=== PATIENT | female | born 1970 | race Hispanic/Latino ===

== ENCOUNTER 2017-06-06 14:48 | Inpatient (IN) | payer BC ==
[2017-06-06] MEDS ORDERED: Levalbuterol 1.25 MG/3 ML Inhal Soln UD IH STA (15:05)
[2017-06-06] MEDS ORDERED: Sodium Chloride 0.9% 1,000 ML IV STA (15:05)
[2017-06-06] MEDS ORDERED: guaiFENesin 200 mg/10 ml Syrup UD PO STA (15:06)
[2017-06-06] MEDS ORDERED: Ipratropium 0.02% Inhal Soln (0.5 mg/2.5 ml) UD IH STA (15:06)
--- NOTE | 2017-06-06 15:08 | ED PDOC ---
Arrival/HPI - General Chief Complaint: Syncope Time Seen by Provider: 06/06/17 14:50 Historian: Patient - History of Present Illness Narrative History of Present Illness (Text): 06/06/17 15:00 Nona Robison is a 46 year old female, whose past medical history includes hyperthyroidism, Brain AVM with seizure disorder, vertigo, and asthmatic bronchitis, who presents to the emergency department complaining of a continuous cough for the past ten days as well as sob. Patient reports she was prescribed Prednisone and Levaquin, and finished two courses of each (last doses today) but the symptoms have become worse. She has been feeling more sob and cough. Patient notes she decided to take a hot bath for the steam to help her with her shortness of breath, but her found her passed out. No seizure activity was witnessed. Additionally, patient reports having a headache , fever, and nausea last night. Patient denies vomiting, dysuria, diarrhea, abdominal pain, dizziness, or other complaints. PMD: Dr. Norris Time/Duration: > week (10 days) Symptom Onset: Gradual Symptom Course: Worsening Associated Symptoms (Text): cough, fever, headache, nausea, possible loss of consciousness Past Medical History - Provider Review Nursing Documentation Reviewed: Yes - Past History Past History: No Previous - Infectious Disease Hx of Infectious Diseases: None - Tetanus Immunization Tetanus Immunization: Unknown - Reproductive Menopause: Yes - Past Medical History Past Medical History: No Previous - Cardiac Hx Cardiac Disorders: Yes - Pulmonary Hx Bronchitis: Yes - Neurological Hx Seizures: Yes - HEENT Hx HEENT Disorder: (WEARS RX GLASSES) - Renal Hx Renal Disorder: No - Endocrine/Metabolic Hx Hyperthyroidism: Yes (no medication prescribed) - Hematological/Oncological Hx Blood Disorders: No - Integumentary Hx Dermatological Disorder: No - Musculoskeletal/Rheumatological Hx Musculoskeletal Disorders: No - Gastrointestinal Hx Gastrointestinal Disorders: Yes (UMBILICAL HERNIA REPAIR) - Genitourinary/Gynecological Hx Genitourinary Disorders: No - Psychiatric Hx Anxiety: Yes Hx Depression: No Hx Substance Use: No - Past Surgical History Past Surgical History: No Previous - Surgical History Hx Appendectomy: Yes (2006) - Anesthesia Hx Anesthesia: Yes Hx Anesthesia Reactions: No Hx Malignant Hyperthermia: No - Suicidal Assessment Feels Threatened In Home Enviroment: No Family/Social History - Physician Review Nursing Documentation Reviewed: Yes Family/Social History: Unknown Family HX Smoking Status: Heavy Smoker > 10 Cigarettes Daily Hx Alcohol Use: No Hx Substance Use: No Hx Substance Use Treatment: No Allergies/Home Meds Allergies/Adverse Reactions: Allergies No Known Allergies Allergy (Verified 06/06/17 14:59) Home Medications: Home Meds Medication Instructions Recorded Confirmed rOPINIRole [Requip] 2 mg PO DAILY 11/22/14 06/06/17 Review of Systems - Review of Systems Constitutional: Fevers Respiratory: SOB, Cough Cardiovascular: Syncope Gastrointestinal: Nausea. absent: Abdominal Pain, Diarrhea, Vomiting Genitourinary Female: absent: Dysuria, Frequency Musculoskeletal: absent: Back Pain Neurological: Headache, Other (loss of consciousness ). absent: Dizziness Physical Exam Vital Signs Reviewed: Yes Vital Signs Temp Pulse Resp BP Pulse Ox 06/06/17 16:17 98.2 F 91 H 17 118/68 98 06/06/17 14:50 98.1 F 96 H 19 123/77 97 Temperature: Afebrile Blood Pressure: Normal Pulse: Tachycardic Respiratory Rate: Normal Appearance: Positive for: Well-Appearing, Non-Toxic, Comfortable Pain Distress: None Mental Status: Positive for: Alert and Oriented X 3 - Systems Exam Head: Present: Atraumatic, Normocephalic Pupils: Present: PERRL Extroacular Muscles: Present: EOMI Conjunctiva: Present: Normal Mouth: Present: Moist Mucous Membranes Pharnyx: Present: Normal. No: ERYTHEMA, EXUDATE Respiratory/Chest: Present: Wheezes (diffuse bilateral wheezing), Tachypneic. No: Respiratory Distress, Accessory Muscle Use Cardiovascular: Present: Regular Rate and Rhythm, Normal S1, S2. No: Murmurs Abdomen: Present: Normal Bowel Sounds. No: Tenderness, Distention, Peritoneal Signs Upper Extremity: Present: Normal Inspection, Erythema. No: Cyanosis, Edema, Swelling Lower Extremity: Present: Normal Inspection, Normal ROM. No: Edema, Tenderness , Swelling Neurological: Present: GCS=15, CN II-XII Intact, Speech Normal Skin: Present: Warm, Dry, Normal Color. No: Rashes Psychiatric: Present: Alert, Oriented x 3, Normal Insight, Normal Concentration Medical Decision Making ED Course and Treatment: 06/06/17 Impression: 46 year old female with diffused bilateral wheezing. Coughing for 10 days and already finished two courses of Prednisone and Levaquin. Differential: vasovagal vs seizure vs cardiac syncope; underlying asthma vs pneumonia. Plan: -- EKG -- Chest X-ray -- CT Head -- Labs -- Urinalysis -- Robitussin, Atrovent, Xopenex, Solumedrol, and Sodium Chlroide -- Reassess and disposition Progress Notes: 06/06/17 EKG: Ordered, reviewed, and independently interpreted the EKG. Rate : 90 BPM Rhythm : NSR Interpretation : No ST-segment elevations or depressions, no T-wave inversions, normal intervals. Comparison : No previous EKG for comparison. 06/06/17 16:30 Chest X-ray: Creator : Juan Ruano MD COMPARISON: 01/29/2015 FINDINGS: LUNGS: No active pulmonary disease. PLEURA: No significant pleural effusion identified. No pneumothorax apparent. CARDIOVASCULAR: Normal. OSSEOUS STRUCTURES: No significant abnormalities. VISUALIZED UPPER ABDOMEN: Normal. OTHER FINDINGS: None. IMPRESSION: No active disease. No significant interval change compared to the prior examination(s). Concordant results with the preliminary interpretation rendered by the emergency department physicianMOAHN at the conclusion of the procedure. 06/06/17 17:[address]: Creator : Juan Ruano MD COMPARISON: 11/21/2014 CT brain 01/14/2015 MRI head FINDINGS: HEMORRHAGE: No intracranial hemorrhage. BRAIN: No mass effect or edema. Stable calcifications within the right basal ganglia. Similar type by far if your dystrophic calcifications in the left basal ganglia region. VENTRICLES: Unremarkable. No hydrocephalus. CALVARIUM: Unremarkable. PARANASAL SINUSES: Unremarkable as visualized. No significant inflammatory changes. MASTOID AIR CELLS: Unremarkable as visualized. No inflammatory changes. OTHER FINDINGS: None. IMPRESSION: No acute intracranial abnormalities. No significant findings to account for the clinical presentation. No significant interval change compared to the prior examination(s). 06/06/17 18:01 Patient with noted history continues to have significant wheezing and tachypnea despite iv steroids and nebs; it is concerning that she has failed outpatient therapy with oral steroids and albuterol as well as levaquin - will need further observation for asthmatic bronchitis. Patient also with history of seizure with avm with syncopal episode earlier - will place on tele - discussed with Dr. Brandon Brunson. - Lab Interpretations Lab Results: 06/06/17 15:24 06/06/17 15:24 Lab Results 06/06/17 15:24: Sodium 139, Potassium 3.6, Chloride 105, Carbon Dioxide 26, Anion Gap 12, BUN 13, Creatinine 0.6 L, Est GFR ( Amer) > 60, Est GFR ( Non-Af Amer) > 60, Random Glucose 94, Calcium 9.1, Magnesium 2.3 H, Total Bilirubin 0.6, AST 16, ALT 31, Alkaline Phosphatase 69, Lactate Dehydrogenase 332 L, Total Creatine Kinase 48, Troponin I < 0.01, NT-Pro-B Natriuret Pep 48.9 , Total Protein 6.7, Albumin 4.0, Globulin 2.7, Albumin/Globulin Ratio 1.5, Lipase 28 06/06/17 15:24: PT 10.8, INR 1.00, APTT 23.8 06/06/17 15:24: WBC 12.2 H D, RBC 4.41, Hgb 13.6, Hct 40.7, MCV 92.3, MCH 30.8, MCHC 33.4, RDW 14.4, Plt Count 305, MPV 9.3, Gran % 61.9, Lymph % (Auto) 27.7, [place] % (Auto) 10.1 H, Eos % (Auto) 0.3 L, Baso % (Auto) 0.0, Gran # 7.53 H, Lymph # 3.4, [place] # 1.2 H, Eos # 0.0, Baso # 0.00 06/06/17 15:04: Urine Color Yellow, Urine Appearance Clear, Urine pH 7.0, Ur Specific Perkins 1.010, Urine Protein Negative, Urine Glucose (UA) Negative, Urine Ketones Negative, Urine Blood Small H, Urine Nitrate Negative, Urine Bilirubin Negative, Urine Urobilinogen 0.2, Ur Leukocyte Esterase Negative, Urine RBC 2 - 5, Urine WBC 0 - 2, Ur Epithelial Cells 1 - 3, Urine Bacteria Many 06/06/17 14:53: POC Glucose (mg/dL) 83 I have reviewed the lab results: Yes - RAD Interpretation Radiology Orders: 06/06/17 15:03 CHEST TWO VIEWS (PA/LAT) [RAD] Stat 06/06/17 15:04 Brain [HEAD W/O CONTRAST] [CT] Stat Yard Engineer: Radiologist - EKG Interpretation Interpreted by ED Physician: Yes Type: 12 lead EKG - Medication Orders Current Medication Orders: Albuterol/Ipratropium (Duoneb 3 Mg/0.5 Mg (3 Ml) Ud) 3 ml IH STAT STA Stop: 06/06/17 17:52 Discontinued Medications Guaifenesin (Robitussin) 400 mg PO ONCE STA Stop: 06/06/17 15:07 Last Admin: 06/06/17 15:29 Dose: 400 mg Sodium Chloride (Sodium Chloride 0.9%) 1,000 mls @ 999 mls/hr IV .Q1H1M STA Stop: 06/06/17 16:05 Last Admin: 06/06/17 15:29 Dose: 999 mls/hr eMAR Start Stop Document 06/06/17 15:29 IT (Rec: 06/06/17 15:29 IT [id number] Intravenous Solution Start Date 06/06/17 Start Time 15:29 End Date 06/06/17 End time 16:29 Total Infusion Time 60 Ipratropium Almira (Atrovent) 0.5 mg IH STAT STA Stop: 06/06/17 15:07 Last Admin: 06/06/17 15:39 Dose: 0.5 mg Levalbuterol HCl (Xopenex) 1.25 mg IH STAT STA Stop: 06/06/17 15:06 Last Admin: 06/06/17 15:39 Dose: 1.25 mg Methylprednisolone (Solu-Medrol) 125 mg IVP STAT STA Stop: 06/06/17 15:06 Last Admin: 06/06/17 15:29 Dose: 125 mg IVP Administration Document 06/06/17 15:29 IT (Rec: 06/06/17 15:29 IT [id number]) Charges for Administration # of IVP Administrations 1 - Scribe Statement The provider has reviewed the documentation as recorded by the Scribe Celia Pike Provider Scribe Attestation: All medical record entries made by the Scribe were at my direction and personally dictated by me. I have reviewed the chart and agree that the record accurately reflects my personal performance of the history, physical exam, medical decision making, and the department course for this patient. I have also personally directed, reviewed, and agree with the discharge instructions and disposition. Disposition/Present on Arrival - Present on Arrival Any Indicators Present on Arrival: No History of DVT/PE: No History of Uncontrolled Diabetes: No Urinary Catheter: No History of Decub. Ulcer: No History Surgical Site Infection Following: None - Disposition Have Diagnosis and Disposition been Completed?: Yes Diagnosis: Asthmatic bronchitis, Syncope Disposition: HOSPITALIZED Disposition Time: 17:25 Patient Plan: Observation, Telemetry Condition: FAIR Discharge Instructions (ExitCare): Syncope (ED) Forms: [employer] ([employer]amazight)
[2017-06-06 15:42] LABS: EOS % 0.3 % (1.5-5.0); GRAN # 7.53 (1.4-6.5); GRAN % 61.9 % (50.0-68.0); HEMATOCRIT 40.7 % (36.0-48.0); LYMPH # 3.4 (1.2-3.4); LYMPH % 27.7 % (22.0-35.0); MEAN CELL VOLUME 92.3 fl (80.0-105.0); MEAN CORPUSCULAR HEMOGLOBIN 30.8 pg (25.0-35.0); MEAN CORPUSCULAR HGB CONC 33.4 g/dl (31.0-37.0); MEAN PLATELET VOLUME 9.3 fl (7.0-11.0); MONO # 1.2 (0.1-0.6); MONO % 10.1 % (1.0-6.0); RED CELL DISTRIBUTION WIDTH 14.4 % (11.5-14.5); WHITE BLOOD COUNT 12.2 10^3/ul (4.5-11.0)
[2017-06-06 15:51] LABS: ALB/GLOB RATIO 1.5 (1.1-1.8); ALKALINE PHOSPHATASE 69 U/L (38-126); ALT/SGPT 31 U/L (7-56); AST/SGOT 16 U/L (14-36); BILIRUBIN,TOTAL 0.6 mg/dL (0.2-1.3); BLOOD UREA NITROGEN 13 mg/dL (7-21); CALCIUM 9.1 mg/dL (8.4-10.5); CARBON DIOXIDE 26 mmol/L (21-33); CHLORIDE 105 mmol/L (98-107); GFR AFRICAN-AMERICAN > 60; GLUCOSE,RANDOM 94 mg/dL (70-110); LIPASE 28 U/L (23-300); MAGNESIUM 2.3 mg/dL (1.7-2.2); POTASSIUM 3.6 mmol/L (3.6-5.0); SODIUM 139 mmol/L (132-148); TOTAL PROTEIN 6.7 g/dL (5.8-8.3)
[2017-06-06 16:03] LABS: TROPONIN I < 0.01 ng/mL
[2017-06-06 16:06] LABS: PARTIAL THROMBOPLASTIN TIME 23.8 Seconds (23.7-30.8)
--- NOTE | 2017-06-06 16:24 | RAD ---
HISTORY: cough, sob, syncope COMPARISON: 01/29/2015 TECHNIQUE: Chest PA and lateral FINDINGS: LUNGS: No active pulmonary disease. PLEURA: No significant pleural effusion identified. No pneumothorax apparent. CARDIOVASCULAR: Normal. OSSEOUS STRUCTURES: No significant abnormalities. VISUALIZED UPPER ABDOMEN: Normal. OTHER FINDINGS: None. IMPRESSION: No active disease. No significant interval change compared to the prior examination(s). Concordant results with the preliminary interpretation rendered by the emergency department physician procedure.
[2017-06-06 16:42] LABS: URINE BILIRUBIN NEGATIVE (NEGATIVE); URINE BLOOD SMALL (NEGATIVE); URINE GLUCOSE (UA) NEGATIVE (NEGATIVE); URINE KETONE NEGATIVE (NEGATIVE); URINE LEUKOCYTE ESTERASE NEGATIVE Leu/uL (NEGATIVE); URINE PROTEIN NEGATIVE mg/dL (<30 mg/dL); URINE UROBILINOGEN 0.2 E.U./dL (<1 E.U./dL)
[2017-06-06 16:46] LABS: URINE APPEARANCE CLEAR (CLEAR); URINE COLOR YELLOW (YELLOW)
[2017-06-06 17:08] LABS: URINE BACTERIA MANY (NEG); URINE WBC 0 - 2 /hpf (0-6)
--- NOTE | 2017-06-06 17:40 | CT ---
PROCEDURE: CT HEAD WITHOUT CONTRAST. HISTORY: headache, syncope; h/o avm and seizures COMPARISON: 11/21/2014 CT brain 01/14/2015 MRI head TECHNIQUE: Axial computed tomography images were obtained through the head/brain without intravenous contrast. Radiation dose: Total exam DLP = 859.93 mGy-cm. This CT exam was performed using one or more of the following dose reduction techniques: Automated exposure control, adjustment of the mA and/or kV according to patient size, and/or use of iterative reconstruction technique. FINDINGS: HEMORRHAGE: No intracranial hemorrhage. BRAIN: No mass effect or edema. Stable calcifications within the right basal ganglia. Similar type by far if your dystrophic calcifications in the left basal ganglia region. VENTRICLES: Unremarkable. No hydrocephalus. CALVARIUM: Unremarkable. PARANASAL SINUSES: Unremarkable as visualized. No significant inflammatory changes. MASTOID AIR CELLS: Unremarkable as visualized. No inflammatory changes. OTHER FINDINGS: None. IMPRESSION: No acute intracranial abnormalities. No significant findings to account for the clinical presentation. No significant interval change compared to the prior examination(s).
[2017-06-06] MEDS ORDERED: Albuterol-Ipratrop 3 mg / 0.5 (3 ml) UD IH STA (17:51)
[2017-06-06] MEDS ORDERED: Albuterol-Ipratrop 3 mg / 0.5 (3 ml) UD ONE (18:03)
[2017-06-06] MEDS ORDERED: Albuterol-Ipratrop 3 mg / 0.5 (3 ml) UD IH PRN (18:39)
[2017-06-06] MEDS: Albuterol-Ipratrop 3 mg / 0.5 (3 ml) UD IH SCH ×2 (19:51→23:29)
[2017-06-06 20:51] VITALS: BMI 21.4
--- NOTE | 2017-06-06 23:10 | CP.PCM.PN ---
Subjective - Date & Time of Evaluation Date of Evaluation: 06/06/17 Time of Evaluation: 23:09 - Subjective Subjective: Patient was seen at bedside. She complained of cough. Has no other complaints. Denies sob, chest pain. Medical record was reviewed. This 46 year old woman was admitted with worsening dyspnea and productive cough. Has PMH of mild intermittent asthma, cerebral AVM , hyperthyroidism , anxiety, seizure. Objective - Vital Signs/Intake and Output Vital Signs (last 24 hours): Temp Pulse Resp BP Pulse Ox 98.2 F 104 H 18 152/59 H 98 06/06/17 18:27 06/06/17 22:00 06/06/17 20:17 06/06/17 18:27 06/06/17 18:27 - Medications Medications: Current Medications Albuterol/Ipratropium (Duoneb 3 Mg/0.5 Mg (3 Ml) Ud) 3 ml IH Q2H PRN PRN Reason: Shortness of Breath Albuterol/Ipratropium (Duoneb 3 Mg/0.5 Mg (3 Ml) Ud) 3 ml IH [id number] BEA Last Admin: 06/06/17 19:51 Dose: 3 ml Alprazolam (Xanax) 0.25 mg PO HS BEA PRN Reason: Protocol Stop: 06/13/17 22:01 Last Admin: 06/06/17 21:22 Dose: 0.25 mg Doxycycline Hyclate (Doryx) 100 mg PO Q12 BEA PRN Reason: Protocol Last Admin: 06/06/17 21:22 Dose: 100 mg Methylprednisolone (Solu-Medrol) 60 mg IVP Q12 [facility] Last Admin: 06/06/17 21:26 Dose: 60 mg - Labs Labs: PT 10.8 Seconds (9.9-11.8) 06/06/17 15:24 INR 1.00 (0.93-1.08) 06/06/17 15:24 APTT 23.8 Seconds (23.7-30.8) 06/06/17 15:24 - Constitutional Appears: Well, No Acute Distress - Head Exam Head Exam: ATRAUMATIC, NORMAL INSPECTION, NORMOCEPHALIC - Eye Exam Eye Exam: Normal appearance - ENT Exam ENT Exam: Normal External Ear Exam - Neck Exam Neck Exam: Normal Inspection - Respiratory Exam Respiratory Exam: NORMAL BREATHING PATTERN - Cardiovascular Exam Cardiovascular Exam: absent: JVD - GI/Abdominal Exam GI & Abdominal Exam: absent: Distended - Rectal Exam Rectal Exam: Deferred - Exam Additional comments: Deferred. - Extremities Exam Extremities Exam: Normal Inspection - Back Exam Back Exam: NORMAL INSPECTION - Neurological Exam Neurological Exam: Alert, Oriented x3 - Psychiatric Exam Psychiatric exam: Normal Affect, Normal Mood - Skin Skin Exam: Normal Color Assessment and Plan - Assessment and Plan (Free Text) Assessment: Pneumonia. Anxiety . Seizure. Mild intermittent asthma. Hyperthyroidism. Hx Cerebral AVM. Plan: Robitussin 100 mg PO Q4H prn. Continue present management.
[2017-06-06] MEDS: guaiFENesin 200 mg/10 ml Syrup UD PO PRN (23:23)
[2017-06-07] MEDS: Albuterol-Ipratrop 3 mg / 0.5 (3 ml) UD IH SCH ×6 (04:57→23:35)
[2017-06-07] MEDS: guaiFENesin 200 mg/10 ml Syrup UD PO PRN ×3 (05:40→21:15)
[2017-06-07 06:28] LABS: GRAN # 8.19 (1.4-6.5); GRAN % 79.6 % (50.0-68.0); HEMATOCRIT 36.1 % (36.0-48.0); LYMPH # 1.4 (1.2-3.4); LYMPH % 13.2 % (22.0-35.0); MEAN CELL VOLUME 93.3 fl (80.0-105.0); MEAN CORPUSCULAR HEMOGLOBIN 31.3 pg (25.0-35.0); MEAN CORPUSCULAR HGB CONC 33.5 g/dl (31.0-37.0); MEAN PLATELET VOLUME 9.7 fl (7.0-11.0); MONO # 0.7 (0.1-0.6); MONO % 7.2 % (1.0-6.0); RED CELL DISTRIBUTION WIDTH 14.8 % (11.5-14.5); WHITE BLOOD COUNT 10.3 10^3/ul (4.5-11.0)
[2017-06-07 07:15] LABS: ALB/GLOB RATIO 1.3 (1.1-1.8); ALKALINE PHOSPHATASE 78 U/L (38-126); ALT/SGPT 27 U/L (7-56); AST/SGOT 24 U/L (14-36); BILIRUBIN,TOTAL 0.3 mg/dL (0.2-1.3); BLOOD UREA NITROGEN 13 mg/dL (7-21); CALCIUM 8.4 mg/dL (8.4-10.5); CARBON DIOXIDE 22 mmol/L (21-33); CHLORIDE 109 mmol/L (98-107); GFR AFRICAN-AMERICAN > 60; GLUCOSE,RANDOM 124 mg/dL (70-110); POTASSIUM 3.8 mmol/L (3.6-5.0); SODIUM 142 mmol/L (132-148); TOTAL PROTEIN 5.6 g/dL (5.8-8.3)
--- NOTE | 2017-06-07 07:30 | CON ---
REASON FOR PULMONARY CONSULTATION: Asthma. REFERRING PHYSICIAN: Dr. Brunson. HISTORY OF PRESENT ILLNESS: The patient is a 46-year-old female, with past medical history significant for asthma, recurrent bronchitis, hyperthyroidism, brain AVM with seizure disorder, vertigo, who presents to [facility] with main complaints of increasing shortness of breath at rest, dyspnea on exertion, cough, and sputum production for the past week. There is no history of chest pain, coughing up of blood, or chest pain-made worse with deep respirations. There is no history of temperatures, chills, or infectious exposure. There is no history of night sweats, weight loss, or appetite change prior to the above events. No history of leg or calf pains. There is a questionable history of syncope. The patient states that she was taking a very hot bath and "may have passed out." No history of diaphoresis. No history of recent travel. REVIEW OF SYSTEMS: No history of nausea, vomiting or diarrhea. No acute urinary symptoms. No new musculoskeletal complaints. Rest of the review of systems is negative. ALLERGIES: No known allergies. SOCIAL HISTORY: Positive for tobacco and negative for alcohol. FAMILY HISTORY: No inheritable diseases. HOME MEDICATIONS: ReQuip. PHYSICAL EXAMINATION: GENERAL: The patient is not short of breath at rest. She is not using accessory muscles for breathing. VITAL SIGNS: Temperature 98.6, pulse 82, respirations 18, blood pressure 97/66. Oxygen saturation on room air ranges between 93% to 98%. HEENT: Normocephalic, atraumatic. No JVD. CARDIOVASCULAR: Positive S1 and S2. No S3. LUNGS: Decreased breath sounds at the bases. Scattered bilateral rhonchi and wheezing are appreciated. EXTREMITIES: No clubbing, cyanosis or edema. Calves are nontender to palpation. GASTROINTESTINAL: Abdomen is soft, nontender and nondistended. Bowel sounds are positive. SKIN: No acute rash. NEUROLOGIC: Limited at the present time. PERTINENT LABORATORY DATA: Chest x-ray was done this morning and reviewed. There is no active disease present. CBC: White count 10.3, hemoglobin 12.1, hematocrit 36.1, platelets of 286,000. Complete metabolic profile: Creatinine 0.6, magnesium 2.3, LDH 332. Rest of the metabolic profile is within normal limits. IMPRESSION: 1. Acute bronchitis. 2. Acute bronchospasm. 3. Asthma. 4. Possible syncopal episode at home. PLAN: I did discuss the case with the night nurse at length. I have also discussed the case with the patient at length, and reviewed the chart at length. The patient presents to [facility] with a 1-week history of worsening pulmonary symptoms. In addition, as above, the patient was taking a very hot bath "and may have passed out." She was thus admitted for additional evaluation. I did review the chest x-ray as above. There is no active disease present. On physical exam, there is [id number] bronchospasm noted. I will continue with the current nebulizer treatments and current intravenous steroids for now. I will also add inhaled Pulmicort this morning. The patient has also been placed on oral doxycycline. There are no temperatures noted. The initial mild leukocytosis has now resolved. The patient does feel better this morning, and is clinically improved. I might suggest a neurologic evaluation-given the patient's history of brain AVM and seizure disorder. I will also discuss the above with Dr. Brunson later this morning. Thank you very much for this pulmonary consultation. Juan Jose Chawla MD MTDYen
[2017-06-07] MEDS: Budesonide 0.5 mg/2 ml Inhal Susp UD IH SCH ×2 (08:33→19:32)
--- NOTE | 2017-06-07 10:18 | CARD ---
APPROVED REPORT EKG Measurement Heart [id number] <Conclusion> Normal sinus rhythm Normal ECG
--- NOTE | 2017-06-07 12:53 | HP ---
HISTORY OF PRESENT ILLNESS: The patient is a 46-year-old woman with past medical history of mild intermittent asthma, hyperthyroidism, anxiety disorder and cerebral AVM with remote history of seizures who presented to [facility] [place] for evaluation of a several-day history of worsening dyspnea and cough productive of sputum. She saw her PMD on 2 occasions for the aforementioned symptoms and completed 2 courses of antibiotics (Z-pack followed by Levaquin) and Prednisone 50mg (total of 10 days) with no resolution of her symptoms. Given the ongoing nature of her symptoms she opted for evaluation in the ED. Of note the patient was also reported to experience a questionable syncopal episode however, upon further discussion with the patient, she reports that while she was in the bathtub taking a very hot bath she may have "nodded off" for a couple of seconds. The patient denied headache, tongue biting, bowel or bladder incontinence or postictal confusion. Upon arrival to the ED she was noted to be afebrile and hemodynamically stable. She was furthermore noted to be neurologically intact. Physical examination did disclose significant bronchospasm and wheeze. She received Solu-Medrol 125 mg IV x1 and was started on DuoNebs and supplemental oxygen. Given her persistent wheeze she was admitted to the telemetry balderrama for continued management of acute bronchitis. PAST MEDICAL HISTORY: As per HPI. PAST SURGICAL HISTORY: Bilateral tubal ligation. MEDICATIONS: Requip 2 mg p.o. daily, Xanax 0.5 mg p.o. b.i.d. ALLERGIES: NO KNOWN DRUG ALLERGIES. FAMILY HISTORY: Significant for hypertension. SOCIAL HISTORY: The patient denies any toxic habits. She is and lives at home with her and children. REVIEW OF SYSTEMS: A 14-point review of systems is negative except as per HPI. PHYSICAL EXAMINATION: VITAL SIGNS: Temperature 98.6, pulse 82, blood pressure 97/66, respiratory rate 20 and oxygen saturation 94% on room air. GENERAL: No apparent distress. HEENT: PERRL. EOMI. No scleral icterus. No conjunctival pallor. NECK: No JVD. No bruits. LUNGS: Diffuse wheeze with scattered rhonchi. CARDIOVASCULAR: Regular rate and rhythm. Normal S1 and S2. No murmurs, rubs or gallops. ABDOMEN: Normoactive bowel sounds. Soft, nontender and nondistended. EXTREMITIES: No edema. NEUROLOGIC: Awake, alert and oriented x3. No focal motor deficits. LABORATORY DATA: WBC 10.3 with 79% neutrophils, hemoglobin 12, hematocrit 36 and platelets 286. Chemistry reviewed and unremarkable. IMAGING STUDIES: 1. Chest x-ray demonstrated no active disease. 2. CT of the head without contrast demonstrated no acute pathology. ASSESSMENT: The patient is a 46-year-old woman with mild intermittent asthma and anxiety disorder who presented for evaluation of a 1 week history of worsening dyspnea and cough productive of sputum who was admitted to the telemetry balderrama for management of asthma exacerbation and acute bronchitis. PLAN: 1. Mild intermittent asthma with acute exacerbation. Input from Dr. Chawla noted and appreciated. Continue with supplemental oxygen and bronchodilators as needed. Continue with Solu-Medrol 60 mg IV q. 12 hours to taper. Continue Doxycycline 100 mg p.o. q. 12 hours. 2. Anxiety disorder. Continue Xanax 0.5 mg p.o. b.i.d. 3. History of cerebral AVM. The patient remains neurologically intact and with no focal motor deficits. CT head reviewed and is negative. At present we will defer neurological evaluation for likely vasovagal syncope (albeit the history is not convincing for syncope) 4. Hyperthyroidism. 5. Prophylaxis: GI prophylaxis is not indicated as the patient is eating. DVT prophylaxis is not indicated as the patient is ambulatory. CODE STATUS: Full code. Brandon Brunson MD MTDD
[2017-06-08] MEDS: guaiFENesin 200 mg/10 ml Syrup UD PO PRN ×4 (02:23→21:05)
[2017-06-08] MEDS: Albuterol-Ipratrop 3 mg / 0.5 (3 ml) UD IH SCH ×5 (04:25→19:50)
[2017-06-08 06:43] LABS: BASO # 0.01 K/mm3 (0.0-2.0); BASO % 0.1 % (0.0-3.0); GRAN # 11.1 (1.4-6.5); GRAN % 77.2 % (50.0-68.0); HEMATOCRIT 35.5 % (36.0-48.0); LYMPH # 2.3 (1.2-3.4); LYMPH % 16.2 % (22.0-35.0); MEAN CELL VOLUME 93.4 fl (80.0-105.0); MEAN CORPUSCULAR HEMOGLOBIN 32.6 pg (25.0-35.0); MEAN CORPUSCULAR HGB CONC 34.9 g/dl (31.0-37.0); MEAN PLATELET VOLUME 9.3 fl (7.0-11.0); MONO # 0.9 (0.1-0.6); MONO % 6.5 % (1.0-6.0); WHITE BLOOD COUNT 14.4 10^3/ul (4.5-11.0)
[2017-06-08 06:54] LABS: ALB/GLOB RATIO 1.3 (1.1-1.8); ALKALINE PHOSPHATASE 73 U/L (38-126); ALT/SGPT 25 U/L (7-56); AST/SGOT 16 U/L (14-36); BILIRUBIN,TOTAL 0.3 mg/dL (0.2-1.3); BLOOD UREA NITROGEN 8 mg/dL (7-21); CALCIUM 8.4 mg/dL (8.4-10.5); CARBON DIOXIDE 23 mmol/L (21-33); CHLORIDE 111 mmol/L (98-107); GFR AFRICAN-AMERICAN > 60; GLUCOSE,RANDOM 112 mg/dL (70-110); POTASSIUM 3.5 mmol/L (3.6-5.0); SODIUM 144 mmol/L (132-148); TOTAL PROTEIN 5.7 g/dL (5.8-8.3)
[2017-06-08] MEDS ORDERED: Potassium Chloride 20 mEq ER Tab PO ONE (08:07)
--- NOTE | 2017-06-08 08:11 | PN ---
SUBJECTIVE: The patient appears comfortable at rest. She is not short of breath. PHYSICAL EXAMINATION VITAL SIGNS: Last temperature recorded is 99.1, pulse this morning on the monitor is 85, respiratory rate 18, blood pressure 109/59. Oxygen saturation on room air is 95%. HEENT: Normocephalic, atraumatic. NECK: No JVD. CARDIOVASCULAR: Positive S1, S2. No S3. LUNGS: Improved breath sounds at the bases. Less rhonchi. Less wheezing. EXTREMITIES: No clubbing, cyanosis or edema. Calves are nontender to palpation. GASTROINTESTINAL: Abdomen is soft, nontender, nondistended. Bowel sounds are positive. SKIN: No acute rash. NEUROLOGIC: Limited at the present time. IMPRESSION: 1. Acute bronchitis. 2. Acute bronchospasm. 3. Asthma. 4. Possible syncopal episode at home. PLAN: The patient appears comfortable this morning. She is not short of breath at rest. Her cough is much less. The patient states to feeling much better overall. On physical exam, there is significantly less bronchospasm noted. In addition, there is no significant alveolar-arterial gradient. I will continue with the current nebulizer treatments and decrease the intravenous steroids this morning. The patient remains on antibiotic therapy. There are no temperatures noted. There is no leukocytosis. Clinical status of the patient is significantly improved. The patient is advised to increase her activity as tolerated. Hopefully, we could get the patient home in the next 1 to 2 days. I will discuss the above with Dr. Brunson. Juan Jose Chawla MD MTDD
--- NOTE | 2017-06-08 09:05 | PN ---
SUBJECTIVE: The patient was seen and examined at bedside in the telemetry balderrama. No acute events overnight. She remains afebrile and hemodynamically stable. This morning she endorses improvement in her respiratory status and states that she feels her breathing is less labored, however, she does not feel back to her baseline. Otherwise, she offers no complaints. PHYSICAL EXAMINATION: VITAL SIGNS: Temperature 98.4, pulse 92, blood pressure 122/59, respiratory rate 20, and oxygen saturation 95% on room air. GENERAL: No apparent distress. HEENT: PERRL. EOMI. No scleral icterus. No conjunctival pallor. NECK: No JVD. No bruits. LUNGS: Faint wheeze with a few scattered rhonchi. CARDIOVASCULAR: Regular rate and rhythm. Normal S1 and S2. No murmurs, rubs, or gallops. ABDOMEN: Normoactive bowel sounds. Soft, nontender. Nondistended. EXTREMITIES: No edema. NEUROLOGIC: Awake, alert and oriented x3. No focal motor deficits. LABORATORY DATA: WBC is 14.4 with 77% neutrophils, hemoglobin 12, hematocrit 35, and platelets 251. Sodium 144, potassium 3.5, chloride 111, bicarbonate 23, BUN 8, creatinine 0.6, glucose 112. ASSESSMENT: The patient is a 46-year-old woman with mild intermittent asthma and anxiety disorder who presented for evaluation of a one week history of worsening dyspnea and cough productive of sputum who was admitted to the telemetry balderrama for management of asthma exacerbation and acute bronchitis. PLAN: 1. Mild, intermittent asthma with acute exacerbation. Input from Dr. Chawla noted and appreciated. Continue with supplemental oxygen and bronchodilators as needed. Steroids have been tapered to Solu-Medrol 40 mg IV q. 12 hours. Continue doxycycline 100 mg p.o. q. 12 hours. 2. Anxiety disorder. Continue with Xanax 0.5 mg p.o. q. 6 hours p.r.n. 3. History of cerebral AVM. The patient remains neurologically intact and with no focal motor deficits. Furthermore, she denies any neurologic complaints. 4. Hyperthyroidism. 5. Hypokalemia. We will replete. 6. Prophylaxis. GI prophylaxis not indicated, as the patient is eating. DVT prophylaxis not indicated, as the patient is ambulatory. CODE STATUS: FULL CODE. Brandon Brunson MD MTDYen
[2017-06-08] MEDS: MethylPREDNISolone 40 mg Vial IVP SCH ×2 (09:19→21:05)
[2017-06-08] MEDS: Budesonide 0.5 mg/2 ml Inhal Susp UD IH SCH (19:50)
[2017-06-09] MEDS: Albuterol-Ipratrop 3 mg / 0.5 (3 ml) UD IH SCH ×3 (00:20→07:19)
[2017-06-09 06:15] LABS: BASO # 0.01 K/mm3 (0.0-2.0); BASO % 0.1 % (0.0-3.0); GRAN # 10.53 (1.4-6.5); GRAN % 79.4 % (50.0-68.0); HEMATOCRIT 38.7 % (36.0-48.0); LYMPH # 1.9 (1.2-3.4); LYMPH % 14.5 % (22.0-35.0); MEAN CELL VOLUME 94.2 fl (80.0-105.0); MEAN CORPUSCULAR HEMOGLOBIN 30.7 pg (25.0-35.0); MEAN CORPUSCULAR HGB CONC 32.6 g/dl (31.0-37.0); MEAN PLATELET VOLUME 9.6 fl (7.0-11.0); MONO # 0.8 (0.1-0.6); WHITE BLOOD COUNT 13.3 10^3/ul (4.5-11.0)
[2017-06-09 06:40] LABS: ALB/GLOB RATIO 1.3 (1.1-1.8); ALKALINE PHOSPHATASE 79 U/L (38-126); ALT/SGPT 58 U/L (7-56); AST/SGOT 31 U/L (14-36); BILIRUBIN,TOTAL 0.3 mg/dL (0.2-1.3); BLOOD UREA NITROGEN 14 mg/dL (7-21); CALCIUM 9.1 mg/dL (8.4-10.5); CARBON DIOXIDE 26 mmol/L (21-33); CHLORIDE 106 mmol/L (98-107); GFR AFRICAN-AMERICAN > 60; GLUCOSE,RANDOM 123 mg/dL (70-110); POTASSIUM 4.2 mmol/L (3.6-5.0); SODIUM 143 mmol/L (132-148); TOTAL PROTEIN 6.1 g/dL (5.8-8.3)
[2017-06-09] MEDS: Budesonide 0.5 mg/2 ml Inhal Susp UD IH SCH ×2 (06:50→07:19)
[2017-06-09] MEDS: guaiFENesin 200 mg/10 ml Syrup UD PO PRN (06:50)
--- NOTE | 2017-06-09 07:18 | PN ---
SUBJECTIVE: The patient appears very comfortable this morning. She is not short of breath at rest. PHYSICAL EXAMINATION VITAL SIGNS: Temperature is 98.0, pulse on the monitor is 88, respiratory rate 16, blood pressure 132/79. Oxygen saturation on room air is 96%. HEENT: Normocephalic, atraumatic. NECK: No JVD. CARDIOVASCULAR: Positive S1 and S2. No S3 gallop. LUNGS: Improved breath sounds at the bases. Much less rhonchi. No wheezing this morning. EXTREMITIES: No clubbing, cyanosis or edema. Calves are nontender to palpation. GASTROINTESTINAL: Abdomen is soft, nontender, nondistended. Bowel sounds are positive. SKIN: No acute rash. NEUROLOGIC: Limited at the present time. IMPRESSION: 1. Acute bronchitis. 2. Acute bronchospasm. 3. Asthma. 4. Possible syncopal episode at home. PLAN: The patient appears very comfortable this morning. She is not short of breath at rest. She is not dyspneic on exertion. Her cough is much less. She does state to feeling much better overall, and is begging to go home. On physical exam, her bronchospasm continues to resolve. I will continue with the current nebulizer treatments and change to oral steroids this morning. The patient also remains on antibiotic therapy. There are no temperatures noted. There is a very mild leukocytosis on the last labs-most likely due to the steroids. The clinical status of the patient is significantly improved. She is for discharge in the very near future. I will discuss the above with Dr. Brunson. Juan Jose Chawla MD MTDYen
[2017-06-09 07:43] VITALS: BP 117/69; PULSE 97; RESP 17; TEMP 98.5; O2SAT 96
[2017-06-09] MEDS ORDERED: Influenza Vaccine 60 mcg/0.5 mL SYR (4YR UP) IM ONE (08:44)
[2017-06-09] MEDS ORDERED: Pneumococcal 23-Valent Vaccine IM ONE (08:44)
--- NOTE | 2017-06-09 10:23 | PN ---
SUBJECTIVE: The patient was seen examined and at bedside on the telemetry balderrama. No acute events overnight. She remains afebrile and hemodynamically stable and continues to demonstrate improvement in her respiratory status. This morning she is sitting up comfortably in her bed, receiving a breathing treatment and states she feels back to her baseline. PHYSICAL EXAMINATION: VITAL SIGNS: Temperature 98.5, pulse 90, blood pressure 117/69, respiratory rate 17, and oxygen saturation 96% on room air. GENERAL: In no apparent distress. HEENT: PERRL. EOMI. No scleral icterus. No conjunctival pallor. NECK: No JVD. No bruits. LUNGS: Faint wheeze with resolution of rhonchi. CARDIOVASCULAR: Regular rate and rhythm. Normal S1 and S2. No murmurs, rubs, or gallops. ABDOMEN: Normoactive bowel sounds, soft, nontender, and nondistended. EXTREMITIES: No edema. NEUROLOGIC: Awake, alert, and oriented x3. No focal motor deficits. LABORATORY DATA: CBC unremarkable. Chemistry unremarkable. ASSESSMENT: The patient is a 46-year-old woman with mild intermittent asthma and anxiety disorder who presented for evaluation of a 1 week history of worsening dyspnea and cough productive of sputum who was admitted to the telemetry balderrama for management of asthma exacerbation and acute bronchitis. PLAN: 1. Mild intermittent asthma with acute exacerbation. Input from Dr. Chawla noted and appreciated and steroids have been tapered. The patient remains on Doxycycline 100 mg p.o. q. 12 hours. We will complete a 10-day course of antibiotics and slowly taper her steroids and she is demonstrating clinical improvement. 2. Anxiety disorder. Continue with Xanax 0.5 mg p.o. q. 6 hours p.r.n. 3. History of cerebral arteriovenous malformation. The patient remains neurologically intact. There were no focal motor deficits. 4. Hyperthyroidism. 5. Prophylaxis. GI prophylaxis not indicated as the patient is eating. DVT not indicated as the patient is ambulatory. 6. Disposition. The patient for discharge to home today. CODE STATUS: Full code. Brandon Brunson MD JUD
--- NOTE | 2017-06-09 21:54 | DS ---
ADMITTING DIAGNOSES: Mild intermittent asthma with acute exacerbation, acute bronchitis. DISCHARGE DIAGNOSES: Mild intermittent asthma with acute exacerbation, acute bronchitis. SECONDARY DIAGNOSES: Anxiety disorder, cerebral arteriovenous malformation. CONSULTATIONS: Dr. Chawla (Pulmonary and Critical Care Medicine) IMAGING STUDIES: 1. Chest x-ray which demonstrated no acute pathology. 2. CT of the head without contrast which demonstrated no acute pathology. HISTORY OF PRESENT ILLNESS: The patient is a 46-year-old woman with a past medical history of mild intermittent asthma, anxiety disorder and cerebral AVM with a remote history of seizures who presented to [facility] for evaluation of a several day history of worsening dyspnea and cough productive of sputum. She saw her PMD on two occasions for the aforementioned symptoms and completed two courses of antibiotics (Z-Frank followed by Levaquin) and Prednisone 50 mg (total of 10 days) with no resolution of her symptoms. Given the ongoing nature of her symptoms, she opted for evaluation in the ED. Upon arrival to the ED she was noted to be afebrile and hemodynamically stable. Physical examination disclosed significant wheeze and bronchospasm. She received Solu-Medrol 125 mg IV x 1 and was started on DuoNebs and supplemental oxygen before being admitted to the telemetry balderrama for continued management of acute bronchitis. HOSPITAL COURSE: Upon admission to the telemetry balderrama she was evaluated by Dr. Chawla ( Pulmonary and Critical Care Medicine). She was maintained on Solu-Medrol 60 mg IV q.12 hours in addition to Doxycycline 100 mg p.o q. 12 hours, DuoNebs and supplemental oxygen. Over the following 24 to 36 hours she was noted to significantly improve in her respiratory status. Her steroids were tapered and she continued to demonstrate improvement in her pulmonary symptoms with near resolution of her bronchospasm and wheeze. Her hospital course was otherwise unremarkable and by hospital day #3, she was deemed stable for discharge to home. CONDITION: Good, improved. DISPOSITION: Home. DISCHARGE MEDICATIONS: Requip 2 mg p.o. daily, Xanax 0.5 mg p.o. b.i.d., Doxycycline 100 mg p.o. b.i.d. for 8 days (to complete a 10-day total course) and a steroid taper consisting of Prednisone 40 mg p.o. daily for 3 days to be tapered by 10 mg every 3 days. DISCHARGE INSTRUCTIONS: The patient was advised if she has any recurrence of her symptoms to followup with her PMD or present to the nearest ED immediately. FOLLOWUP: The patient will followup with her PMD within 2 weeks of discharge. The patient to followup with Dr. Chawla as scheduled. Brandon Brunson MD MTDYen
== END 2017-06-09 09:36 | disposition home or self-care (01) | DRG 202 ==
LOC: ED 14:48 → ERH 17:52 → 2RNO 18:34 → OBSVTOIN 06-08 07:29
PROVIDERS: ADMIT Student in an Organized Health Care Education/Training Program; ATTEND Student in an Organized Health Care Education/Training Program
PROC: 3E0F7GC Introduction of Other Therapeutic Substance into Respiratory Tract, Via Natural or Artificial Opening (ICD-10-PCS; principal; 2017-06-06)
DX: J20.9 Acute bronchitis, unspecified (principal); J45.21 Mild intermittent asthma with (acute) exacerbation; Q28.2 Arteriovenous malformation of cerebral vessels; E05.90 Thyrotoxicosis, unspecified without thyrotoxic crisis or storm; G40.909 Epilepsy, unspecified, not intractable, without status epilepticus; E87.6 Hypokalemia; F41.9 Anxiety disorder, unspecified; Z90.49 Acquired absence of other specified parts of digestive tract

== ENCOUNTER 2018-04-09 11:03 | Emergency (ER) | payer BC ==
[2018-04-09 11:10] VITALS: BMI 21.0
[2018-04-09] MEDS ORDERED: Sodium Chloride 0.9% 1,000 ML IV STA (11:25)
[2018-04-09 11:28] VITALS: RESP 18
--- NOTE | 2018-04-09 11:29 | ED PDOC ---
Arrival/HPI - General Chief Complaint: Abdominal Pain Time Seen by Provider: 04/09/18 11:04 Historian: Patient - History of Present Illness Narrative History of Present Illness (Text): 04/09/18 11:30 47 year old female, with a past medical history that includes hyperthyroidism, Brain AVM with seizure disorder, appendectomy, tubal ligation, and ovarian cystectomy, presents to the emergency department with right-sided cramping abdominal pain, since 5 days. Patient states she has had removal of her ovarian cysts in the past, which presented with similar pain. Patient states the pain travels down her right side, to the leg and back. Patient also states she has been having more urinary frequency, and has been feeling nausea. Patient denies any fever, chills, headache, dizziness, chest pain, shortness of breath, cough, vomiting, diarrhea, neck pain, or any other complaint. Time/Duration: < week (pain started 4-5 days ago) Symptom Onset: Gradual Symptom Course: Unchanged Quality: Cramping Activities at Onset: Light Past Medical History - Provider Review Nursing Documentation Reviewed: Yes - Past History Past History: No Previous - Infectious Disease Hx of Infectious Diseases: None - Tetanus Immunization Tetanus Immunization: Unknown - Past Medical History Past Medical History: No Previous - Cardiac Hx Cardiac Disorders: Yes - Pulmonary Hx Respiratory Disorders: Yes Hx Asthma: Yes Hx Bronchitis: Yes - Neurological Hx Neurological Disorder: Yes Hx Dizziness: Yes - HEENT Hx HEENT Disorder: Yes (WEARS RX GLASSES) - Renal Hx Renal Disorder: No - Endocrine/Metabolic Hx Endocrine Disorders: Yes Hx Hyperthyroidism: Yes (no medication prescribed) - Hematological/Oncological Hx Blood Disorders: No - Integumentary Hx Dermatological Disorder: No - Musculoskeletal/Rheumatological Hx Musculoskeletal Disorders: Yes (restless leg syndrome.) Hx Falls: Yes - Gastrointestinal Hx Gastrointestinal Disorders: Yes (UMBILICAL HERNIA REPAIR) - Genitourinary/Gynecological Hx Genitourinary Disorders: No - Psychiatric Hx Psychophysiologic Disorder: Yes Hx Anxiety: Yes Hx Depression: No Hx Substance Use: No - Past Surgical History Past Surgical History: No Previous - Surgical History Hx Appendectomy: Yes (2006) Other/Comment: fibroid - Anesthesia Hx Anesthesia: Yes Hx Anesthesia Reactions: No Hx Malignant Hyperthermia: No - Suicidal Assessment Feels Threatened In Home Enviroment: No Family/Social History - Physician Review Nursing Documentation Reviewed: Yes Family/Social History: No Known Family HX Smoking Status: Light Smoker < 10 Cigarettes Daily Hx Alcohol Use: No Hx Substance Use: No Hx Substance Use Treatment: No Allergies/Home Meds Allergies/Adverse Reactions: Allergies No Known Allergies Allergy (Verified 06/06/17 14:59) Home Medications: Home Meds Medication Instructions Recorded Confirmed ALPRAZolam HALF TABLET [Xanax] 0.125 mg PO BID PRN 04/09/18 04/09/18 Review of Systems - Physician Review All systems were reviewed & negative as marked: Yes - Review of Systems Constitutional: Normal. absent: Fevers, Night Sweats Eyes: Normal ENT: Normal Respiratory: Normal. absent: SOB, Cough Cardiovascular: Normal. absent: Chest Pain Gastrointestinal: Abdominal Pain (Right Adnexal Pain), Nausea. absent: Diarrhea , Vomiting Genitourinary Female: Urine Output Changes (Increased Urination Frequency) Musculoskeletal: Normal, Back Pain. absent: Neck Pain Skin: Normal Neurological: Normal. absent: Headache, Dizziness Endocrine: Normal Hemo/Lymphatic: Normal Psychiatric: Normal Physical Exam Vital Signs Reviewed: Yes Vital Signs Temp Pulse Resp BP Pulse Ox 04/09/18 14:51 98 F 68 18 110/60 98 04/09/18 13:00 62 18 103/57 L 98 04/09/18 11:03 98.3 F 95 H 18 96/63 L 96 Temperature: Afebrile Blood Pressure: Normal Pulse: Regular Respiratory Rate: Normal Appearance: Positive for: Well-Appearing, Non-Toxic, Comfortable Pain Distress: None Mental Status: Positive for: Alert and Oriented X 3 - Systems Exam Head: Present: Atraumatic, Normocephalic Pupils: Present: PERRL Extroacular Muscles: Present: EOMI Conjunctiva: Present: Normal Mouth: Present: Moist Mucous Membranes Neck: Present: Normal Range of Motion Respiratory/Chest: Present: Clear to Auscultation, Good Air Exchange. No: Respiratory Distress, Accessory Muscle Use Cardiovascular: Present: Regular Rate and Rhythm, Normal S1, S2. No: Murmurs Abdomen: Present: Tenderness (Right Adnexal Tenderness) Back: Present: Normal Inspection Upper Extremity: Present: Normal Inspection. No: Cyanosis, Edema Lower Extremity: Present: Normal Inspection. No: Edema Neurological: Present: GCS=15, CN II-XII Intact, Speech Normal Skin: Present: Warm, Dry, Normal Color. No: Rashes Psychiatric: Present: Alert, Oriented x 3, Normal Insight, Normal Concentration Medical Decision Making ED Course and Treatment: 04/09/18 11:30 Impression: 47 year old female presents to the emergency department with right- sided adnexal pain. uti fibroid, cyst Plan: -- Labs -- Urinalysis -- Ultrasound -- Toradol -- Reassess and disposition Prior Visits: Notes and results from previous visits were reviewed. Progress Notes: 04/09/18 13:15 Transvaginal Ultrasound reviewed by radiologist, shows: Heterogeneous uterus the patient with a history uterine fibroids. Small hypoechoic structure in the uterine fundus region that could represent a tiny fibroid. There is a small fluid collection seen in the endometrial canal of uncertain etiology. Follow-up peanut sorter consultation and hysteroscopy recommended for further evaluation. Small left ovarian cyst. 04/09/18 15:50 pt reasesed. persisitent pain, noted microscopic hematuria, ?kidney stone. ct added. neg. pt reassess pain improved. advise outpt fu and return precautios - Lab Interpretations Lab Results: 04/09/18 11:20 04/09/18 11:20 Lab Results 04/09/18 11:20: Sodium 144, Potassium 4.0, Chloride 110 H, Carbon Dioxide 22, Anion Gap 15, BUN 11, Creatinine 0.6 L, Est GFR ( Amer) > 60, Est GFR ( Non-Af Amer) > 60, Random Glucose 98, Calcium 9.6, Magnesium 2.0, Total Bilirubin 0.4, AST 16, ALT 21, Alkaline Phosphatase 78, Total Protein 7.4, Albumin 4.4, Globulin 2.9, Albumin/Globulin Ratio 1.5, Lipase 30 04/09/18 11:20: Urine Color Yellow, Urine Appearance Clear, Urine pH 6.0, Ur Specific Hudson 1.015, Urine Protein Negative, Urine Glucose (UA) Negative, Urine Ketones Negative, Urine Blood Moderate H, Urine Nitrate Negative, Urine Bilirubin Negative, Urine Urobilinogen 0.2, Ur Leukocyte Esterase Trace H, Urine RBC 0 - 2, Urine WBC 5 - 10, Ur Epithelial Cells 1 - 3, Urine Bacteria Neg , Urine HCG, Qual Negative 04/09/18 11:20: PT 12.2, INR 1.06, APTT 26.1 04/09/18 11:20: WBC 8.2 D, RBC 4.39, Hgb 13.3, Hct 39.4, MCV 89.7 D, MCH 30.3 , MCHC 33.8, RDW 13.5, Plt Count 257, MPV 10.5, Gran % 60.8, Lymph % (Auto) 32.7 , Mckinley % (Auto) 5.0, Eos % (Auto) 1.3 L, Baso % (Auto) 0.2, Gran # 5.00, Lymph # (Auto) 2.7, Mckinley # (Auto) 0.4, Eos # (Auto) 0.1, Baso # (Auto) 0.02 - RAD Interpretation Radiology Orders: 04/09/18 11:25 TRANSVAGINAL [US] Stat 04/09/18 12:51 ABD & PELVIS W/O PO OR IV CONT [CT] Stat - Medication Orders Current Medication Orders: Discontinued Medications Sodium Chloride (Sodium Chloride 0.9%) 1,000 mls @ 999 mls/hr IV .Q1H1M STA Stop: 04/09/18 12:25 Last Admin: 04/09/18 11:45 Dose: 999 mls/hr eMAR Start Stop Document 04/09/18 11:45 SRE (Rec: 04/09/18 11:45 SRE [id number]) Intravenous Solution Start Date 04/09/18 Start Time 11:45 End Date 04/09/18 End time 12:45 Total Infusion Time 60 Ketorolac Tromethamine (Toradol) 30 mg IVP STAT STA Stop: 04/09/18 11:26 Last Admin: 04/09/18 11:45 Dose: 30 mg MAR Pain Assessment Document 04/09/18 11:45 SRE (Rec: 04/09/18 11:45 SRE [id number]) Pain Reassessment Is this a pain reassessment? Yes Sleep Is patient sleeping during reassessment? No Presence of Pain Presence of Pain Yes Pain Scale Used Pain Scale Used Numeric Location Left, Right or Bilateral Right Pain Location Body Site Abdomen Description Description Intermittent IVP Administration Document 04/09/18 11:45 SRE (Rec: 04/09/18 11:45 SRE [id number]) Charges for Administration # of IVP Administrations 1 Morphine Sulfate (Morphine) 4 mg IVP STAT STA Stop: 04/09/18 12:34 Last Admin: 04/09/18 12:39 Dose: 4 mg MAR Pain Assessment Document 04/09/18 12:39 SRE (Rec: 04/09/18 12:41 SRE [id number]) Pain Reassessment Is this a pain reassessment? Yes Sleep Is patient sleeping during reassessment? No Presence of Pain Presence of Pain Yes Pain Scale Used Pain Scale Used Numeric Location Left, Right or Bilateral Right Pain Location Body Site Abdomen Description Description Intermittent IVP Administration Document 04/09/18 12:39 SRE (Rec: 04/09/18 12:41 SRE [id number]) Charges for Administration # of IVP Administrations 1 - Scribe Statement The provider has reviewed the documentation as recorded by the Scribe Chip Robison All medical record entries made by the Scribe were at my direction and personally dictated by me. I have reviewed the chart and agree that the record accurately reflects my personal performance of the history, physical exam, medical decision making, and the department course for this patient. I have also personally directed, reviewed, and agree with the discharge instructions and disposition. Disposition/Present on Arrival - Present on Arrival Any Indicators Present on Arrival: No History of DVT/PE: No History of Uncontrolled Diabetes: No Urinary Catheter: No History of Decub. Ulcer: No History Surgical Site Infection Following: None - Disposition Have Diagnosis and Disposition been Completed?: Yes Diagnosis: Fibroids, intramural, Abdominal pain Disposition: HOME/ ROUTINE Disposition Time: 02:00 Condition: STABLE Discharge Instructions (ExitCare): Uterine Fibroids, Acute Abdomen (Belly Pain) , Adult (DC) Additional Instructions: please follow up with your doctor/clinic and specialist. return to er with worsening symptoms or concerns. Prescriptions: Naproxen 500 mg PO BID PRN #14 tablet PRN Reason: Pain, Mild (1-3) Referrals: [facility] [Outside] - [place] up [place] [facility] [place] - [facility] [Outside] - Follow up with primary Forms: [employer] (Mauritanian)
[2018-04-09 11:37] LABS: BASO # 0.02 K/mm3 (0.0-2.0); BASO % 0.2 % (0.0-3.0); EOS # 0.1 (0.0-0.7); EOS % 1.3 % (1.5-5.0); GRAN % 60.8 % (50.0-68.0); HEMOGLOBIN 13.3 g/dL (12.0-16.0); LYMPH # 2.7 (1.2-3.4); LYMPH % 32.7 % (22.0-35.0); MEAN CELL VOLUME 89.7 fl (80.0-105.0); MEAN CORPUSCULAR HEMOGLOBIN 30.3 pg (25.0-35.0); MEAN CORPUSCULAR HGB CONC 33.8 g/dl (31.0-37.0); MEAN PLATELET VOLUME 10.5 fl (7.0-11.0); MONO # 0.4 (0.1-0.6); RBC 4.39 10^6/uL (3.5-6.1); RED CELL DISTRIBUTION WIDTH 13.5 % (11.5-14.5); WHITE BLOOD COUNT 8.2 10^3/ul (4.5-11.0)
[2018-04-09 11:42] LABS: URINE BILIRUBIN NEGATIVE (NEGATIVE); URINE BLOOD MODERATE (NEGATIVE); URINE GLUCOSE (UA) NEGATIVE (NEGATIVE); URINE LEUKOCYTE ESTERASE TRACE Leu/uL (NEGATIVE); URINE PROTEIN NEGATIVE mg/dL (<30 mg/dL); URINE UROBILINOGEN 0.2 E.U./dL (<1 E.U./dL)
[2018-04-09 11:44] LABS: URINE APPEARANCE CLEAR (CLEAR); URINE COLOR YELLOW (YELLOW)
[2018-04-09 11:47] LABS: ALB/GLOB RATIO 1.5 (1.1-1.8); ALBUMIN 4.4 g/dL (3.0-4.8); ALT/SGPT 21 U/L (7-56); AST/SGOT 16 U/L (14-36); BLOOD UREA NITROGEN 11 mg/dL (7-21); CALCIUM 9.6 mg/dL (8.4-10.5); GFR AFRICAN-AMERICAN > 60; GFR NON-AFRICAN AMERICAN > 60; HCG,QUALITATIVE URINE NEGATIVE (NEGATIVE); LIPASE 30 U/L (23-300)
[2018-04-09 11:51] LABS: INR 1.06; PARTIAL THROMBOPLASTIN TIME 26.1 Seconds (25.1-36.5); PROTHROMBIN TIME 12.2 SECONDS (9.4-12.5)
[2018-04-09 11:59] LABS: URINE BACTERIA NEG (NEG); URINE RBC 0 - 2 /hpf (0-2)
[2018-04-09] MEDS ORDERED: Morphine 4 mg/ml ISec IVP STA (12:33)
--- NOTE | 2018-04-09 12:49 | US ---
Date of service: 04/09/2018 HISTORY: Right sided pain COMPARISON: Comparison made with prior study 10/27/2013. TECHNIQUE: Transabdominal/transvaginal sonographic evaluation of the pelvis performed. FINDINGS: UTERUS: Measures approximately 4.7 x 2.8 x 3.5 cm. The uterus is heterogeneous. There is a small hypoechoic focus near the uterine fundus region measures 4 mm x 2.7 mm and could represent a small hypoechoic fibroid. ENDOMETRIUM: Measures 2.4 mm in diameter. There appears to be a small elliptical shaped fluid collection within the endometrial canal of uncertain etiology. Consider followup SSN/SSBN WEAPONS EQUIPMENT OPERATOR consultation and hysteroscopy recommended for further evaluation. CERVIX: No cervical abnormality identified. Cervix measures 3.1 RIGHT OVARY: Measures approximately 1.6 x 1.0 x 1.4 cm. No solid mass. Normal flow. LEFT OVARY: Measures approximately 2.1 x 1.9 x 2.1 cm. No solid mass. Normal flow. There is a small cyst left ovary that measures approximately 1.2 x 1.0 x 1.3 cm. FREE FLUID: No significant free fluid noted. OTHER FINDINGS: None. IMPRESSION: Heterogeneous uterus the patient with a history uterine fibroids. Small hypoechoic structure in the uterine fundus region that could represent a tiny fibroid. There is a small fluid collection seen in the endometrial canal of uncertain etiology. Follow-up playback operator consultation and hysteroscopy recommended for further evaluation. Small left ovarian cyst.
[2018-04-09 13:00] VITALS: O2SAT 98
--- NOTE | 2018-04-09 14:27 | CT ---
Date of service: 04/09/2018 PROCEDURE: CT Abdomen and Pelvis without intravenous contrast HISTORY: Right-sided flank pain COMPARISON: Comparison made with CT scan of the abdomen pelvis dated 12/22/2015. TECHNIQUE: Contiguous helical/transaxial sections of the abdomen pelvis performed without or intravenous contrast material. . Additional 2 dimensional sagittal and coronal reformats generated. Radiation dose: Total exam DLP = 221.67 mGy-cm. This CT exam was performed using one or more of the following dose reduction techniques: Automated exposure control, adjustment of the mA and/or kV according to patient size, and/or use of iterative reconstruction technique. FINDINGS: LOWER THORAX: Heart size within range of normal. No significant pericardial effusion. Tiny hiatal hernia. There appears to be some mild scarring changes in the both lung bases including middle lobe and lingular regions. Note that there appears to be some localized pleural thickening adjacent to the lingular scarring as well LIVER: Liver is enlarged measuring nearly 19 cm in CC dimension. No obvious hepatic masses or collections seen on this noncontrast study. Liver demonstrates relatively normal attenuation pattern. GALLBLADDER AND BILE DUCTS: Gallbladder physiologically distended. No evidence of intraluminal gallbladder calculi. PANCREAS: Pancreas unremarkable with no evidence of masses collections or calcifications. No significant ductal dilatation. SPLEEN: Spleen exhibits normal size and attenuation pattern without mass collection or calcification. ADRENALS: There are no adrenal lesions seen. KIDNEYS AND URETERS: Kidneys demonstrate relatively symmetric size. No evidence of nephrolithiasis or hydronephrosis. VASCULATURE: Unremarkable. No aortic aneurysm. BOWEL: Evaluation of the bowel is somewhat limited due to the lack of oral contrast material. Stomach is partially distended with some liquid food debris and air. Visualized loops of small bowel exhibit relatively normal contour and caliber. No evidence of acute mechanical small bowel obstruction. Moderate amount of stool seen throughout the at ascending and transverse colon. APPENDIX: Appendix is not seen with any certainty on this exam however no evidence to suggest acute appendicitis. . Clinical correlation with surgical history. PERITONEUM: Unremarkable. No free fluid. No free air. Small fat containing umbilical hernia. LYMPH NODES: Unremarkable. No enlarged lymph nodes. BLADDER: Urinary bladder is physiologically distended. No evidence of intraluminal urinary bladder calculi. REPRODUCTIVE: Aside from a few of peripheral vascular calcifications about the uterus uterus is otherwise unremarkable. BONES: No acute fracture. OTHER FINDINGS: None. IMPRESSION: No evidence of acute intra abdominal pathology. Hepatomegaly. Moderate amount stool seen within ascending and to a lesser degree transverse colon suggesting mild fecal retention/ constipation. . Appendix not seen with any certainty; clinical correlation with surgical history. No evidence of nephrolithiasis or hydronephrosis See above discussion for additional details and findings
[2018-04-09 14:52] VITALS: BP 110/60; PULSE 68; TEMP 98
== END 2018-04-09 14:51 | disposition home or self-care (01) ==
LOC: ED 11:03
DX: D25.1 Intramural leiomyoma of uterus (principal); R10.9 Unspecified abdominal pain
CPT/HCPCS: 74176; 76830; 80053; 81001; 83690; 83735; 84703; 85025; 85610; 85730; 87086; 96361; 96374; 96375; 99284; J1885; J2270; J7030